=== PATIENT | male | born 1955 | race Caucasian/White ===

== ENCOUNTER → 2016-10-23 | Outpatient (CLI) | payer BC ==
[~2016-10-23] MED LIST: ASPIR-LOW81 MG PO; ASPIRIN325 MG PO; CRESTOR40 MG PO; ERYTHROMYC1 APPLICAT BOTH EYES; LISINOPRIL5 MG PO; MULTIVITAMIN1 EAC2 PO; NITROSTAT0.4 MG SL; PERCOCET 5/31 TABLET PO; PRINIVIL5 MG PO; PROTONIX40 MG PO; TOPROL XL50 MG PO; ZETIA10 MG PO
== END | disposition home or self-care (01) ==
LOC: RAD 16:34
DX: R93.6 Abnormal findings on diagnostic imaging of limbs (principal)
CPT/HCPCS: 76882